=== PATIENT | female | born 2000 | race Caucasian/White ===

== ENCOUNTER 2023-07-15 14:48 | Outpatient (CLI) | payer OTHER, SELFPAY ==
--- NOTE | ~2023-07-15 | US_ITS ---
EXAMINATION: US OB <= 14 weeks fetus DATE: 07/15/2023 15:09 INDICATION: Menorrhagia TECHNIQUE: Real-time transabdominal and transvaginal obstetric ultrasound. FINDINGS: No prior studies for comparison. The uterus measures 10.5 x 6.5 x 5.3 cm. There is an intrauterine gestational sac, with pole id entified. The crown rump length measures 2.87 cm, which correlates with a estimated gestational age of 9 weeks 5 days. heart tones are identified measuring 165 bpm. Ovaries are not visualized. IMPRESSION: 1. SL IUP with an EGA of 9 weeks, 5 days (EDC by current ultrasound of 02/12/2024). Reviewed, dictated and finalized at location B. IMPRESSION: 1. SL IUP with an EGA of 9 weeks, 5 days (EDC by current ultrasound of 02/11/19 25).
== END 2023-07-15 14:49 ==
LOC: GOSHIMG 14:52
PROVIDERS: PCP Student in an Organized Health Care Education/Training Program; Visit Provider Student in an Organized Health Care Education/Training Program
DX: N91.2 Amenorrhea, unspecified (principal)
CPT/HCPCS: 76801

== ENCOUNTER 2023-10-02 14:44 | Outpatient (CLI) | payer OTHER, SELFPAY ==
--- NOTE | ~2023-10-02 | US_ITS ---
EXAMINATION: US OB /maternal detail DATE: 10/02/2023 15:28 INDICATION: survey TECHNIQUE: Multiple obstetric sonographic images performed. FINDINGS: No prior studies for comparison. There is a single living fetus in variable presentation. The placenta is anterior without placenta p revia. Amniotic fluid volume is subjectively normal. cardiac activity and movement is noted with a heart rate of 141 beats per minute. The following anatomy was identified as normal: 4 chamber heart 3 vessel cord cord insertion kidneys urinary bladder stomach spine diaphragm ventricles cisterna magna cerebellum The following biometric data were obtained: BPD: 50mm corresponds to gestational age 21 weeks 0 days. Head circumference: 188 mm corresponds to gestational age 21 weeks 1 days. Abdominal circumference: 177 mm corresponds to gestational age 22 weeks 4 days. Femur length: 34 mm corresponds to gestational age 20 weeks 4 days. Head circumference to abdominal circumference ratio: 1.06 (normal range for expected gestational age is 1.06-1.24). Estimated weight: 436 grams +/- 65 grams using Hadlock method, 76.6%. IMPRESSION: 1: Single living intrauterine with an estimated gestational age of 21weeks 0days by initial ultrasound measurements, with an EDC of 02/12/2024 in variable presentation. Appropriate interval fe tigre growth. 2. Normal survey. Reviewed, dictated and finalized at location B. IMPRESSION: 1: Single living intrauterine with an estimated gestational age of 21 weeks 0days by initial ultrasound measurements, with an EDC of 02/12/2024 in va riable presentation. Appropriate interval growth. 2. Normal survey.
== END 2023-10-02 14:45 ==
LOC: GOSHIMG 14:46
PROVIDERS: PCP Student in an Organized Health Care Education/Training Program; Visit Provider Student in an Organized Health Care Education/Training Program
DX: Z34.92 Encounter for supervision of normal pregnancy, unspecified, second trimester (principal); Z3A.21 21 weeks gestation of pregnancy
CPT/HCPCS: 76805

== ENCOUNTER 2024-02-09 18:54 | Inpatient (IN) | payer OTHER, SELFPAY ==
[2024-02-09] VITALS (50 sets, daily range): BP systolic 90–141; BP diastolic 36–104; PULSE 64–117; TEMP 36.2; O2SAT 96–100; BMI 25.0
--- NOTE | 2024-02-09 18:54 | LDADM ---
This patient, Xiomara Pacheco, was admitted to Labor/Delivery/Recovery 102 on 02/09/24 at 18:54. Plans for labor, pain management and were discussed with patient. Patient/family oriented to hospital policies and general routines including ID bracelet, bed and alarms, visiting hours, pain management, procedures, bathroom and other care routines, personal items, smoking policy, room service/diet and guest tray routines, security routines, and visiting hours. Patient/Family are encouraged to report perceived risks to care and to ask questions if they do not understand what they are told or what they should do. See OBIX for further documentation.
[2024-02-09 19:29] LABS: Basophils Percent Auto 0.5 % (0.2-1.2); Eosinophils Absolute Auto 0.1 K/mm3 (0-0.3); Eosinophils Percent Auto 0.6 % (0-4.4); Hematocrit 31.9 % (37.0-47.0); Hemoglobin 10.4 g/dL (12.0-15.0); Immature Granulocyte Absolute 0.03 K/mm3 (0.00-0.031); Immature Granulocyte Percent A 0.3 % (0-0.5); Lymphocytes Absolute Auto 2.72 K/mm3 (0.9-3.2); Lymphocytes Percent Auto 30.8 % (18.3-44.2); Mean Corpuscular HGB Conc 32.6 g/dl (32-36); Mean Corpuscular Hemoglobin 25.9 pg (26-34); Mean Corpuscular Volume 79.4 fl (80-100); Mean Platelet Volume 11.5 fl (7.4-10.4); Monocytes Absolute Auto 0.5 K/mm3 (0.1-0.6); Monocytes Percent Auto 5.9 % (2.6-8.5); Neutrophils Absolute Auto 5.5 K/mm3 (1.3-6.7); Neutrophils Percent Auto 61.9 % (45.5-73.1); Platelet Count Result 401 k/mm3 (150-375); Red Blood Count 4.02 M/mm3 (4.2-5.4); Red Cell Distribution Width 13.7 % (11.5-14.5); White Blood Count 8.8 K/mm3 (4.5-10.0)
--- NOTE | 2024-02-09 19:52 | PM.IMHP ---
H&P: HPI History of Present Illness Date/Time: 02/09/24 19:52 Chief Complaint: contractions Narrative: Xiomara is a 23yo @ 39.4wks who presented for elective IOL, but was found to be parag every 4-6 minutes. She was found to be 3.5/80/-2 with bulging bag. She reports good movement. No VB or LOF. She has had regular care, uncomplicated. Review of Systems Constitutional: Constitutional: Denies chills, Denies fever(s) and Denies headache(s) Eyes: Eyes: Denies change in vision ENT: Denies headache(s) Cardiovascular: Cardiovascular: Denies chest pain and Denies dyspnea Respiratory: Respiratory: Denies dyspnea Genitourinary: Genitourinary: Denies abnormal vaginal bleeding, Reports pelvic pain and Denies vaginal discharge Neurologic: Denies headache(s) Psychiatric: Psychiatric: Denies anxiety and Denies depression PMFSH Past Medical History Medical History Suppression of menses Family History Family History Grandparent Ovarian cancer Melanoma in situ Father Hodgkin disease Mother Melanoma in situ Social History Social History Smoking status: Never smoker Tobacco type: e-cigarettes/vaping Second hand tobacco smoke exposure: No Smoking end date: 07/07/23 Alcohol intake: never Substance use: never Substance use type: does not use Do You Feel Safe in your Home?: Yes Lack of Transportation: No Lack of Food: Never True Current Housing: I Have Housing Concerned About Future Housing: No Difficulty Paying Gas/Electric Bills: No Difficulty Paying for Meds: No Currently Unemployed: No Education: Trade/Vocational Certificate Difficulty w/ Childcare or Family Care: No Living arrangements: with friend(s) Additional living arrangements comments: lives with boyfriend Occupation/Education: occupation 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 Gender identity (if verbalized by the patient): Female Sexual Orientation (if Verbalized by the Patient): Straight or Heterosexual Spiritual care concerns: No Meds Home Medications and Allergies Home Medications ?Medication ?Instructions ?Recorded ?Confirmed ?Type vits no.126-ferrous fum tablet PO 07/10/23 02/05/24 History 28 mg iron-folic acid 800 mcg tablet (Classic ) Allergies Allergy/AdvReac Type Severity Reaction Status Date / Time No Known Allergies Allergy Verified 02/05/24 15:41 Vital Signs Vital Signs - 24 hr 02/09/24 19:15 02/09/24 19:30 02/09/24 19:45 Pulse Rate 95 95 80 Blood Pressure 120/76 107/79 109/82 Exam Const: General: cooperative, healthy appearing and no acute distress Orientation/consciousness: patient oriented x3 Resp: Effort & Inspection: normal respiratory effort Cardio: Rate: regular rate GI: GI Palp: No abdominal tenderness : Other: FHT's: 130's/ mod maisha/ + accels/ no decels - cat 1 TOCO: ctxs q2-4min Cervix: 3.5/80/-2 Membranes: intact Presentation: cephalic Skin: General skin exam: normal color Neuro: General: patient oriented x3 Extrem: General: normal to inspection Psych: Appearance: grossly normal Affect: normal affect Attitude: cooperative Assessment and Plan Assessment and plan (1) Encounter for elective induction of labor: Code(s): Z34.90 - Encounter for supervision of normal , unspecified, unspecified trimester Status: Acute Plan - Pt presented to L&D parag with favorable cervix - will proceed with low dose pitocin augmentation - Continuous monitoring; currently reassuring - GBS negative - Anesthesia consult PRN pain
[2024-02-09] MEDS: LACTATED RINGERS 1,000 ML 125 ML IV CONT ×2 (20:19→23:11)
[2024-02-09] MEDS: OXYTOCIN 30 UNITS/NS 500 ML 30 UNITS/500 ML BAG IV CONT (20:19)
[2024-02-09 20:20] LABS: HIV 1/2 Ab P24 Ag Result Negative (Negative)
[2024-02-09] MEDS: fentaNYL CITRATE INJ (*CRX) 100 MCG/2 ML VIAL 50 MCG IV PUSH (22:33)
--- NOTE | 2024-02-09 22:55 | WPDANESEPP ---
Anes - Eval Pre Procedure Procedure: Labor Epidural Date/Time: 02/09/24 22:55 Surgeon: Chad Preop Diagnosis: Labor Pain Pre Op Diagnosis: IOL Patient Data Age: 23 Gender: F Height: 1.57 m Weight: 62 kg Last Vital Signs Temp 36.2 C L 02/09/24 19:53 Pulse 91 02/09/24 22:01 BP 105/36 L 02/09/24 22:01 O2 Del Method Room Air 02/09/24 19:55 Allergies Allergy/AdvReac Type Severity Reaction Status Date / Time No Known Allergies Allergy Verified 02/05/24 15:41 Home Medications ?Medication ?Instructions ?Recorded ?Confirmed ?Type vits no.126-ferrous fum tablet PO 07/10/23 02/05/24 History 28 mg iron-folic acid 800 mcg tablet (Classic ) Laboratory Tests 02/09/24 19:12 WBC 8.8 K/mm3 (4.5-10.0) RBC 4.02 L M/mm3 (4.2-5.4) Hgb 10.4 L g/dL (12.0-15.0) Hct 31.9 L % (37.0-47.0) MCV 79.4 L fl (80-100) MCH 25.9 L pg (26-34) MCHC 32.6 g/dl (32-36) RDW 13.7 % (11.5-14.5) Plt Count 401 H k/mm3 (150-375) MPV 11.5 H fl (7.4-10.4) Immature Gran % (Auto) 0.3 % (0-0.5) Neut % (Auto) 61.9 % (45.5-73.1) Lymph % (Auto) 30.8 % (18.3-44.2) Gem % (Auto) 5.9 % (2.6-8.5) Eos % (Auto) 0.6 % (0-4.4) Baso % (Auto) 0.5 % (0.2-1.2) Lymph # (Auto) 2.72 K/mm3 (0.9-3.2) Gem # (Auto) 0.5 K/mm3 (0.1-0.6) Eos # (Auto) 0.1 K/mm3 (0-0.3) Baso # (Auto) 0.0 K/mm3 (0.0-0.1) Abs Immat Gran (auto) 0.03 K/mm3 (0.00-0.031) Absolute Neuts (auto) 5.5 K/mm3 (1.3-6.7) Absolute Nucleated RBC 0.000 K/mm3 (0.0-0.012) Nucleated RBC % 0.0 % (0.0-0.2) RPR Pending HIV 1&2 Ab/P24 Ag 4thGn Negative (Negative) Blood Type O Positive Antibody Screen Negative Patient hx anesthesia problems: none Family hx anesthesia problems: none Results Review: All pre-operative results and documents have been reviewed as part of the pre-operative evaluation. [facility] Past Medical History Medical History Suppression of menses Family History Family History Grandparent Ovarian cancer Melanoma in situ Father Hodgkin disease Mother Melanoma in situ Social History Social History Smoking status: Former smoker Tobacco type: e-cigarettes/vaping Second hand tobacco smoke exposure: No Smoking end date: 07/07/23 Alcohol intake: never Substance use: never Substance use type: does not use Do You Feel Safe in your Home?: Yes Lack of Transportation: No Lack of Food: Never True Current Housing: I Have Housing Concerned About Future Housing: No Difficulty Paying Gas/Electric Bills: No Difficulty Paying for Meds: No Currently Unemployed: No Education: Associate Degree Difficulty w/ Childcare or Family Care: No Living arrangements: with friend(s) Additional living arrangements comments: lives with boyfriend Occupation/Education: occupation 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
[2024-02-09 23:26] LABS: Rapid Plasma Reagin Non-Reactive (NonReactive)
[2024-02-09] MEDS: ONDANSETRON INJ 4 MG/2 ML VIAL IV PUSH (23:44)
[2024-02-10] VITALS (98 sets, daily range): BP systolic 67–204; BP diastolic 40–160; PULSE 59–234; RESP 16–18; TEMP 35.9–36.9; O2SAT 48–100
--- NOTE | 2024-02-10 03:12 | PM.OBPRVD ---
OB - Vaginal Delivery Note Procedure Delivery date: 02/10/24 Events: Elective Induction of Labor Delivery augmentation: Pitocin Delivery monitor: External FHT and External Uterine Route of delivery: Episiotomy description: None Laceration Description: Perineal - 1st Degree Delivery repair: vicryl Specimen: No Quantitative Blood Loss (ml): 100 Anesthesia type: Epidural Disposition: Floor Complications: No immediate complications Baby Date of : 02/10/24 Time of : 02:59 Gestational Age by Date: 39 (.5) gender: Male presentation: vertex position: Left Occiput Anterior Placenta delivery description: Expressed Cord Vessel Description: 3 Vessels, Nuchal Cord, Loose, Reduced and Delayed Cord Clamping score one minute: 8 score five minutes: 9 Narrative: Xiomara rapidly progressed to complete dilation and had spontaneous rupture of clear membranes at 1:51 a.m.. She pushed for approximately 1 hour with good maternal effort and delivered the head over intact perineum. Nuchal cord was noted and a loose and easily reduced. She easily delivered the 's shoulders and body without complication. The infant was immediately placed skin to skin and had spontaneous cry. Delayed cord clamping was performed. The umbilical cord was then doubly clamped and cut. She a segment of cord was collected for cord gases. The remaining cord blood was collected for typing. With Pitocin running and gentle downward traction on the cord, the placenta delivered without complication. Bimanual massage was performed and good uterine tone with minimal bleeding was noted. She was examined and a small first-degree perineal laceration was identified. It was reapproximated using a figure of 8 of 2-0 Vicryl. Good hemostasis was then noted. Her uterus remained firm with minimal bleeding. Sponge, lap, instrument, and needle counts were correct at the end of the procedure. Mom and baby were left bonding in the birthing suite in stable condition.
[2024-02-10] MEDS: OXYTOCIN 30 UNITS/NS 500 ML 30 UNITS/500 ML BAG 125 UNITS IV CONT (03:33)
--- NOTE | 2024-02-10 07:05 | OBPPTRN ---
Patient transferred to post room #281 via wheelchair. Support person present. Oriented to unit, room, information board, rooming in, admission packet and security measures. Patient verbalizes understanding.
[2024-02-10] MEDS: DOCUSATE SODIUM 100 MG CAPSULE PO ×2 (08:15→17:22)
[2024-02-10] MEDS: MULTIVIT/MIN/PREN/FOL AC/IRON TABLET 1 TAB PO (08:15)
[2024-02-10] MEDS: IBUPROFEN 600 MG TABLET PO ×2 (08:16→20:20)
--- NOTE | 2024-02-10 10:45 | PC.NURSE ---
Introductions were made, then consulted with patient to assess needs related to . Discussed with mother her?plans to feed?her and the?experience so far. She states that her nipples are sore already. Baby was currently latched to the left breast in football hold. She said he was sleepy this feeding and she had to keep him awake. He was sucking off and on with stimulation. His latch appeared shallow, but may be all he can take in his mouth due to mom's larger nipple size. Encouraged mother to call for assistance with a deeper latch. Reviewed blue feeding worksheet and feeding at least 8-12 times every 24 hours, paying close attention to baby's feeding cues and not necessarily feeding by the clock. If baby hasn't eaten in 3 hours, she would wake him and call for assistance as needed. Resources provided for inpatient and outpatient services with the feeding sheet, mom/baby guide, admission folder and name written on the communication board. Mother voiced understanding of information and will call if there is a request for assistance. Reported to the Primary RN.
[2024-02-10] MEDS: ACETAMINOPHEN 325 MG TABLET 650 MG PO (20:45)
[2024-02-11 05:10] VITALS: BP 116/82; PULSE 53; RESP 16; TEMP 36.5; O2SAT 100
[2024-02-11] MEDS: ACETAMINOPHEN 325 MG TABLET 650 MG PO ×3 (05:10→20:40)
[2024-02-11 05:16] LABS: Hematocrit 33.6 % (37.0-47.0); Hemoglobin 10.4 g/dL (12.0-15.0); Mean Corpuscular Hemoglobin 25.2 pg (26-34); Mean Corpuscular Volume 81.6 fl (80-100); Mean Platelet Volume 11.2 fl (7.4-10.4); Platelet Count Result 342 k/mm3 (150-375); Red Blood Count 4.12 M/mm3 (4.2-5.4); Red Cell Distribution Width 13.9 % (11.5-14.5); White Blood Count 10.6 K/mm3 (4.5-10.0)
[2024-02-11 08:00] VITALS: BP 113/76; PULSE 74; RESP 16; TEMP 36.6; O2SAT 99
[2024-02-11] MEDS: IBUPROFEN 600 MG TABLET PO (08:58)
[2024-02-11] MEDS: MULTIVIT/MIN/PREN/FOL AC/IRON TABLET 1 TAB PO (08:58)
--- NOTE | 2024-02-11 09:06 | P.PNOB_ITS ---
OB - PN: Subj Subjective Date/time seen: 02/11/24 09:06 Narrative: PPD#1 Xiomara reports doing well today. 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 Her pain is controlled. She is tolerating regular diet, voiding, passing gas, and ambulating without issues. She is breast feeding. She would like her son circumcised. She would like to go home this evening. OB - PN: Obj Data Labs 02/11/24 01:58 Labs: Laboratory Results - last 24 hr 02/11/24 01:58 WBC 10.6 H RBC 4.12 L Hgb 10.4 L Hct 33.6 L MCV 81.6 MCH 25.2 L MCHC 31.0 L RDW 13.9 Plt Count 342 MPV 11.2 H OB - PN A/P Assessment and Plan (1) Normal vaginal delivery of first : Code(s): O80 - Encounter for full-term uncomplicated delivery Status: Acute Plan day: 1 Plan: routine care and discharge home (this PM) Comments: - PO pain meds - Regular diet - Ambulation and hydration encouraged - Continue putting baby to breast q2-3hr Time Spent With Patient Time: Total time spent is greater than 50% in coordination of care (as documented) at patient's floor/unit and/or counseling patient: Review of Systems 2 Constitutional: Constitutional: Denies chills, Denies fever(s) and Denies headache(s) Eyes: Eyes: Denies change in vision ENT: Denies dizziness and Denies headache(s) Cardiovascular: Cardiovascular: Denies chest pain, Denies palpitations and Denies dyspnea Respiratory: Respiratory: Denies cough and Denies dyspnea Gastrointestinal: Gastrointestinal: Denies nausea and Denies vomiting Neurologic: Denies dizziness and Denies headache(s) Endocrine: Endocrine: Denies palpitations Exam 2 Const: General: cooperative, healthy appearing, comfortable and no acute distress Orientation/consciousness: patient oriented x3 Resp: Effort & Inspection: normal respiratory effort Auscultation: clear to auscultation bilaterally Cardio: Rate: regular rate GI: Inspection: non-distended GI Palp: No abdominal tenderness and Yes Soft to palpation Auscultation: normal bowel sounds : Other: fundus firm Skin: General skin exam: normal color Neuro: General: patient oriented x3 Extrem: General: normal to inspection Psych: Appearance: grossly normal Affect: normal affect Attitude: c ooperative
--- NOTE | 2024-02-11 11:00 | PC.NURSE ---
Checked in with patient to see how is going. She states that it is going great. Baby eats for 10-15 minutes, she offers the breast any time he gives feeding cues, and she is not experiencing any pain with feedings. Baby's weight and jaundice are WNL today. Encouraged her to call out for assistance if she has any questions or concerns or if she has pain with feeding. Reported to primary RN.
--- NOTE | 2024-02-11 14:38 | WPDANLDPN2 ---
Anes-Prog Note L&D Date/Time: 02/11/24 14:38 Comfortable throughout: labor and delivery Neuraxial method: epidural Epidural/Spinal procedure site: clean & non-tender Neuro status: Neuro function grossly intact. Cardiovascular status: normal Respiratory status: normal Airway patency: baseline Mental status: baseline Post-Op hydration status: normal Vital Signs: Last Vital Signs Temp 97.8 F 02/11/24 08:00 Pulse 74 02/11/24 08:00 Resp 16 02/11/24 08:00 BP 113/76 02/11/24 08:00 Pulse Ox 99 02/11/24 08:00 O2 Del Method Room Air 02/10/24 11:30 Pain score (VAS): 0 I/O: Intake & Output 02/10/24 02/11/24 02/11/24 23:59 07:59 15:59 Intake Total 0 240 Balance 0 240 Post-procedural complaints: none Patient feedback: Patient satisfied with anesthetic care.
[2024-02-12 01:20] VITALS: BP 110/71; PULSE 67; RESP 16; TEMP 36.7; O2SAT 99
--- NOTE | 2024-02-12 07:11 | P.DS_ITS ---
DS: Admitting Diagnosis Discharge Date 02/12/24 Admitting Diagnosis Induction of labor DS: Discharge Diagnosis Discharge Diagnosis (1) Normal vaginal delivery of first : Code(s): O80 - Encounter for full-term uncomplicated delivery Status: Acute OB - DS: Summary OB Procedures : Ultrasound OB Procedures Intrapartum: Spontaneous Vag Delivery OB Procedures: : None Peripartum Data Infant Delivery Method: Natural Vaginal Laceration Description: Perineal - 1st Degree Episiotomy description: None complications: none 1: Gender: Male Disposition of : home Status at Discharge Functional status at discharge: independent ambulation Overall status at discharge: patient is back to baseline Time Spent with Patient Time attestation: Total time spent providing and/or coordinating discharge services: Exam Const: General: cooperative, healthy appearing, comfortable and no acute distress Orientation/consciousness: patient oriented x3 Resp: Effort & Inspection: normal respiratory effort Auscultation: clear to auscultation bilaterally Cardio: Rate: regular rate GI: Inspection: non-distended GI Palp: No abdominal tenderness and Yes Soft to palpation Auscultation: normal bowel sounds : Other: fundus firm Skin: General skin exam: normal color Neuro: General: patient oriented x3 Extrem: General: normal to inspection Psych: Appearance: grossly normal Affect: normal affect Attitude: cooperative DS: Data Data Completed and Pending Labs on day of discharge: Labs from last 24 hours 02/11/24 01:58 WBC 10.6 H RBC 4.12 L Hgb 10.4 L Hct 33.6 L MCV 81.6 MCH 25.2 L MCHC 31.0 L RDW 13.9 Plt Count 342 MPV 11.2 H Discharge Plan Discharge Attending physician on discharge: Radha Bonilla Discharging Clinician: Radha Bonilla Anticipated Discharge Date/Time: 02/12/24 10:00 Patient Disposition: Home, Self-Care Activity: may shower and pelvic rest Diet: regular Patient Instructions: Vaginal Delivery (DC) Patient Language: Panamanian Stand Alone Forms: General Discharge Information Follow-up/Referrals: Radha Bonilla MD [Physician] - 4 Weeks Discharge Medications: New acetaminophen 325 mg Tablet 650 mg PO Q6H PRN (Reason: Mild Pain (1-3) Or Headache) Qty: 60 0RF docusate sodium 100 mg Capsule 100 mg PO BID PRN (Reason: Constipation) Qty: 90 0RF ibuprofen 600 mg Tablet 600 mg PO Q6H PRN (Reason: Cramping) Qty: 40 0RF Continued Classic 28 mg iron- 800 mcg tablet PO Date of admission: 02/09/24 18:54 Primary Care Provider: PHYSICIAN NOT ON STAFF,NONSTAFF Admitting Provider: Radha Bonilla Attending physician on admission: Radha Bonilla Condition: Stable
[2024-02-12] MEDS: MULTIVIT/MIN/PREN/FOL AC/IRON TABLET 1 TAB PO (07:31)
[2024-02-12] MEDS: DOCUSATE SODIUM 100 MG CAPSULE PO (07:31)
[2024-02-12 07:45] VITALS: PULSE 59; RESP 16; O2SAT 100
[2024-02-12 08:10] VITALS: BP 106/66; PULSE 59; RESP 16; O2SAT 100
[2024-02-12] MEDS: ACETAMINOPHEN 325 MG TABLET 650 MG PO (09:56)
--- NOTE | 2024-02-12 10:00 | PC.NURSE ---
Consulted with mother concerning needs and she shared her ability to independently latch infant optimally without pain. Encouraged understanding the benefits of skin to skin, responding to feeding cues, frequencies of feeding 8-12 times in 24 hours (approximately 2-3 hours), duration of feedings, milk production, intake/output feeding sheet and signs of adequate intake encouraging swallowing at the breast. Infant latched optimally to the [right] breast in [football] position. Mother was able to visualize the suckling (with good rocking jaw motion) swallows (dropping of the lower jaw) and how to listen for drinking at the breast (the ka sound), many swallows were heard by mother and RN. The infant was [able] to maintain latch without discomfort to mother. Nipple care reviewed with optimal latch, good positioning and using clean hands when touching her breast. Resources used to facilitate learning were used from the [visual handouts/ tool/mom and baby guide]. Mother is feeding appropriately for growth of and understands stimulating to eat if needed. has had appropriate feedings in the last 24 hours meets the outcomes for weight, output, blood sugar and jaundice at this time. Reinforced understanding of milk production, transition of milk, signs of adequate intake, transition of stool, prevention/relief of engorgement, plugged ducts, mastitis, responsive watching for feeding cues, the different methods of stimulating to breastfeed 1-3 hours after the start of the last feeding, community resources, and when to call a provider using the resource of the feeding sheet along with the mom and baby guide. Mother voiced understanding of the information shared, is confident to continue effectively her at home, when to call for assistance, denies any additional assistance or education at this time. Reported to the Primary RN.
--- NOTE | 2024-02-12 14:31 | PC.NURSE ---
Patient viewed the discharge video Mother & Baby Care, The First Two Weeks . Patient was given the opportunity and encouraged to ask questions. Patient verbalized understanding of information shared and has been given the mother/baby guide for home reference.
[2024-02-14 09:17] VITALS: BP 108/63; PULSE 66; RESP 18; TEMP 36.7; O2SAT 100
== END 2024-02-12 14:40 | disposition home or self-care (01) | DRG 807 ==
LOC: ANHLDR 18:58 → ANHOB2 02-10 07:08
PROVIDERS: Admitting Provider Obstetrics & Gynecology; Visit Provider Obstetrics & Gynecology
DX: O69.81X0 Labor and delivery complicated by cord around neck, without compression, not applicable or unspecified (principal); Z37.0 Single live birth; Z3A.39 39 weeks gestation of pregnancy; O70.0 First degree perineal laceration during delivery
CPT/HCPCS: 36415; 85025; 85027; 86592; 86703; 86850; 86900; 86901; A9270; G0432; J2405; J2590; J2795; J3010; J7120